=== PATIENT | male | born 1950 | race African-American/Black ===

== ENCOUNTER 2017-03-12 07:52 | Outpatient (CLI) | payer OTHER, MEDICAID ==
[~2017-03-12 07:52] MED LIST: ASCO500T20 PO; HYDR25TA4 PO; LISI-652 PO; MULT-1117 PO; MYL80 PO; NITSL SL; NOR10 PO; ONDA4TAB5 PO; POTA20TA83 PO; PRO40 PO
[2017-03-12] MEDS ORDERED: DIATR MEGLU/DIATRIZ SOD 30 ML SOLUTION PO ONE (08:10)
[2017-03-12] MEDS ORDERED: IOHEXOL 100 ML IV ONE (09:28)
== END 2017-03-12 19:40 | disposition home or self-care (01) ==
LOC: SCT 07:52
PROVIDERS: ATTEND Family Medicine
DX: N40.0 Benign prostatic hyperplasia without lower urinary tract symptoms (principal); M47.896 Other spondylosis, lumbar region; I70.8 Atherosclerosis of other arteries; I51.7 Cardiomegaly
CPT/HCPCS: 74177; Q9964; Q9967

== ENCOUNTER 2019-01-20 12:08 | Inpatient (IN) | payer OTHER, MEDICAID ==
[~2019-01-20] VITALS: Ht 172.7 cm; Wt 98.0 kg
[~2019-01-20 12:08] MED LIST changes: +ACET325T53 PO; +CYAN100T3 PO; +DOCU-144 PO; +DULR10 RC; +FAMO40TA71 PO; +MOM PO; +POTA8TAB4 PO; +SENN-153 PO; +SUCR1TAB78 PO
[2019-01-20 12:14] VITALS: BP_SYST 194
[2019-01-20] MEDS ORDERED: ESCI20TA37 PO (12:36)
[2019-01-20] MEDS ORDERED: ACET-2634 PO (12:36)
[2019-01-20] MEDS ORDERED: TRAV2.5D OP (12:36)
[2019-01-20] MEDS ORDERED: ACET-2165 PO (12:36)
[2019-01-20] MEDS ORDERED: PANTOPRAZOLE SODIUM 40 MG/VIAL (PROTONIX) IVP ONE (12:45)
[2019-01-20] MEDS ORDERED: NACL 0.9% 1,000 ML IV ONE (12:45)
[2019-01-20] MEDS ORDERED: ONDANSETRON HCL 4 MG/2 ML VIAL IVP ONE ×2 (12:45→14:45)
[2019-01-20 13:11] LABS: BASOPHILS % (AUTO) 0.2 % (0.0-2.0); EOSINOPHILS % (AUTO) 0.3 % (0.0-4.0); HEMATOCRIT 40.1 % (36-54); HEMOGLOBIN 12.9 g/dL (14.0-18.0); LYMPHOCYTES # (AUTO) 1.9 K/uL (1.0-5.5); LYMPHOCYTES % (AUTO) 10.6 % (20.5-51.5); MEAN CORPUSCULAR HEMOGLOBIN 23 pg (27-31); MEAN CORPUSCULAR HGB CONC 32 % (32-36); MEAN CORPUSCULAR VOLUME 72 fL (79.0-98.0); MONOCYTES % (AUTO) 11.1 % (1.7-9.3); NEUTROPHILS # (AUTO) 13.9 K/uL (1.8-7.7); NEUTROPHILS % (AUTO) 77.8 % (40.0-70.0); PLATELET COUNT (AUTO) 339 K/uL (130-430); RED BLOOD CELL COUNT(AUTO) 5.57 MIL/uL (4.2-6.2); RED CELL DISTRIBUTION WIDTH 19.9 % (9.0-15.0); WHITE BLOOD COUNT (AUTO) 17.9 K/uL (4.8-10.8)
[2019-01-20 13:18] LABS: CALCIUM 9.3 mg/dL (8.4-11.0); CREATININE 1.81 mg/dL (0.55-1.30); POTASSIUM 4.1 mmol/L (3.5-5.1)
[2019-01-20 13:23] LABS: ALBUMIN 3.4 g/dL (3.4-4.8); TOTAL BILIRUBIN 0.2 mg/dL (0.0-1.0)
[2019-01-20 13:24] LABS: PROTHROMBIN TIME 10.5 SECS (9.5-12.5)
[2019-01-20] MEDS ORDERED: NACL 0.9% 2,000 ML IV ONE (13:45)
[2019-01-20 13:50] LABS: BILIRUBIN,URINE 1+ (NEGATIVE); BLOOD, URINE 3+ (NEGATIVE); CLARITY/URINE CLEAR (CLEAR); COLOR,URINE YELLOW (YELLOW); GLUCOSE,URINE NEGATIVE (NEGATIVE); KETONES,URINE NEGATIVE (NEGATIVE); LEUKOCYTE ESTERASE ,URINE NEGATIVE (NEGATIVE); NITRITE, URINE NEGATIVE (NEGATIVE); PH,URINE 5.5 (5.0-8.0); PROTEIN URINE 2+ (NEGATIVE); UROBILINOGEN,URINE 0.2 (0.2-1.0)
[2019-01-20 14:02] LABS: BACTERIA,URINE FEW /HPF (None Seen); RBC,URINE 20-50 /HPF (0-3); URINE AMORPHOUS URATE 1+ /HPF (None Seen); WBC,URINE 0-3 /HPF (0-3)
[2019-01-20] MEDS ORDERED: metroNIDAZOLE 500 mg/NS 100 ML IV ONE (14:45)
[2019-01-20] MEDS ORDERED: hydrALAZINE HCL 20 MG/ML VIAL IVP ONE (14:45)
[2019-01-20 18:04] VITALS: BP_SYST 141
[2019-01-20 18:06] VITALS: BP_SYST 141
[2019-01-20 19:00] VITALS: BP_SYST 128
[2019-01-20] MEDS ORDERED: PIPERACILLIN/TAZO 3.375/DEX-IS 50 ML IV SCH (19:30)
[2019-01-20] MEDS ORDERED: NITROGLYCERIN 0.4 MG TAB.SUBL SL SCH (19:30)
[2019-01-20] MEDS ORDERED: ACETAMINOPHEN 325 MG TABLET PO PRN (19:30)
[2019-01-20] MEDS ORDERED: ONDANSETRON HCL 4 MG/2 ML VIAL IVP PRN (19:30)
[2019-01-20] MEDS ORDERED: MILK OF MAGNESIA 30 ML UDC PO PRN (19:30)
[2019-01-20] MEDS ORDERED: ACETAMINOPHEN 500 MG TABLET PO PRN (19:30)
[2019-01-20] MEDS ORDERED: BISACODYL 10 MG/SUPPOSITORY RC PRN (19:30)
[2019-01-20] MEDS ORDERED: PIPERACILLIN/TAZO 3.375/DEX-IS 50 ML IV ONE (20:15)
[2019-01-20 20:20] LABS: BASOPHILS # (AUTO) 0.1 K/uL (0.0-0.2); BASOPHILS % (AUTO) 0.3 % (0.0-2.0); EOSINOPHILS # (AUTO) 0.1 K/uL (0.0-0.4); EOSINOPHILS % (AUTO) 0.3 % (0.0-4.0); HEMATOCRIT 38.1 % (36-54); LYMPHOCYTES # (AUTO) 2.2 K/uL (1.0-5.5); LYMPHOCYTES % (AUTO) 11.9 % (20.5-51.5); MEAN CORPUSCULAR HEMOGLOBIN 23 pg (27-31); MEAN CORPUSCULAR HGB CONC 31 % (32-36); MEAN CORPUSCULAR VOLUME 73 fL (79.0-98.0); MONOCYTES # (AUTO) 1.9 K/uL (0.0-1.0); MONOCYTES % (AUTO) 10.2 % (1.7-9.3); NEUTROPHILS # (AUTO) 14.4 K/uL (1.8-7.7); NEUTROPHILS % (AUTO) 77.3 % (40.0-70.0); PLATELET COUNT (AUTO) 280 K/uL (130-430); RED BLOOD CELL COUNT(AUTO) 5.21 MIL/uL (4.2-6.2); WHITE BLOOD COUNT (AUTO) 18.7 K/uL (4.8-10.8)
[2019-01-20 20:27] LABS: CALCIUM 8.6 mg/dL (8.4-11.0); CREATININE 1.36 mg/dL (0.55-1.30); POTASSIUM 4.2 mmol/L (3.5-5.1)
[2019-01-20 20:55] VITALS: BP_SYST 160
[2019-01-20 21:00] VITALS: BP_SYST 160
[2019-01-20] MEDS: LATANOPROST 2.5 ML DROPS (XALATAN) OP SCH (21:00)
[2019-01-20] MEDS ORDERED: TRAVOPROST 0.004% 2.5 ML EYE DROPS OP SCH (21:00)
[2019-01-20] MEDS: SENNOSIDES 8.6 MG TABLET PO SCH (22:00)
[2019-01-21] MEDS: NACL 0.9% 1,000 ML IV SCH ×4 (00:57→20:57)
[2019-01-21 01:31] VITALS: BP_SYST 149
[2019-01-21] MEDS: PIPERACILLIN/TAZOBACTAM 2.25 GM/ D5W 50 ML IV SCH ×8 (02:00→20:00)
[2019-01-21 02:55] VITALS: BP_SYST 124
[2019-01-21 06:09] LABS: BASOPHILS # (AUTO) 0.1 K/uL (0.0-0.2); BASOPHILS % (AUTO) 0.6 % (0.0-2.0); EOSINOPHILS # (AUTO) 0.5 K/uL (0.0-0.4); EOSINOPHILS % (AUTO) 2.8 % (0.0-4.0); HEMATOCRIT 35.8 % (36-54); HEMOGLOBIN 11.2 g/dL (14.0-18.0); LYMPHOCYTES % (AUTO) 18.3 % (20.5-51.5); MEAN CORPUSCULAR HEMOGLOBIN 23 pg (27-31); MEAN CORPUSCULAR HGB CONC 31 % (32-36); MEAN CORPUSCULAR VOLUME 73 fL (79.0-98.0); MONOCYTES # (AUTO) 2.3 K/uL (0.0-1.0); MONOCYTES % (AUTO) 13.7 % (1.7-9.3); NEUTROPHILS # (AUTO) 10.6 K/uL (1.8-7.7); NEUTROPHILS % (AUTO) 64.6 % (40.0-70.0); PLATELET COUNT (AUTO) 291 K/uL (130-430); RED BLOOD CELL COUNT(AUTO) 4.88 MIL/uL (4.2-6.2); RED CELL DISTRIBUTION WIDTH 19.9 % (9.0-15.0); WHITE BLOOD COUNT (AUTO) 16.5 K/uL (4.8-10.8)
[2019-01-21 06:11] LABS: ALBUMIN 2.8 g/dL (3.4-4.8); CALCIUM 8.8 mg/dL (8.4-11.0); CREATININE 1.62 mg/dL (0.55-1.30); POTASSIUM 3.8 mmol/L (3.5-5.1); TOTAL BILIRUBIN 0.3 mg/dL (0.0-1.0)
[2019-01-21] MEDS: SUCRALFATE 1 GM TABLET PO SCH ×2 (07:30→16:27)
[2019-01-21 08:00] VITALS: BP_SYST 129
[2019-01-21] MEDS: CITALOPRAM HYDROBROMIDE 20 MG TABLET PO SCH (08:22)
[2019-01-21] MEDS: ASCORBIC ACID 500 MG TABLET PO SCH (08:22)
[2019-01-21] MEDS: DOCUSATE SODIUM 100 MG CAPSULE PO SCH (08:22)
[2019-01-21] MEDS: MULTIVITAMINS TAB 1 TABLET PO SCH (08:23)
[2019-01-21] MEDS: SIMETHICONE 80 MG TAB.CHEW PO SCH (08:23)
[2019-01-21] MEDS: amLODIPine BESYLATE 10 MG TABLET PO SCH (08:24)
[2019-01-21] MEDS ORDERED: MINERAL OIL 30 ML UDC PO ONE (08:45)
[2019-01-21] MEDS ORDERED: NON-FORMULARY MEDICATION (Escitalopram Oxalate 20 MG) PO SCH (09:00)
[2019-01-21] MEDS: Cyanocobalamin (Vitamin B-12) 100 MCG PO SCH (09:00)
[2019-01-21] MEDS ORDERED: LISINOPRIL 5 MG TABLET PO SCH (09:00)
[2019-01-21] MEDS ORDERED: GASTROGRAFIN 120 ML ONE (10:37)
[2019-01-21] MEDS ORDERED: MINERAL OIL 30 ML UDC PO SCH (12:00)
[2019-01-21 16:58] VITALS: BP_SYST 157
[2019-01-21 20:30] VITALS: BP_SYST 149
[2019-01-21] MEDS: SENNOSIDES 8.6 MG TABLET PO SCH (21:00)
[2019-01-21] MEDS: MINERAL OIL 30 ML UDC PO SCH (21:00)
[2019-01-21] MEDS: LATANOPROST 2.5 ML DROPS (XALATAN) OP SCH (21:00)
[2019-01-22] MEDS: PIPERACILLIN/TAZOBACTAM 2.25 GM/ D5W 50 ML IV SCH ×8 (02:00→21:34)
[2019-01-22 04:07] VITALS: BP_SYST 129
[2019-01-22] MEDS: NACL 0.9% 1,000 ML IV SCH ×2 (06:57→16:57)
[2019-01-22] MEDS: SUCRALFATE 1 GM TABLET PO SCH ×2 (07:17→16:59)
[2019-01-22 08:06] VITALS: BP_SYST 134
[2019-01-22] MEDS: Cyanocobalamin (Vitamin B-12) 100 MCG PO SCH (08:45)
[2019-01-22] MEDS: MULTIVITAMINS TAB 1 TABLET PO SCH (08:48)
[2019-01-22] MEDS: DOCUSATE SODIUM 100 MG CAPSULE PO SCH (08:48)
[2019-01-22] MEDS: SIMETHICONE 80 MG TAB.CHEW PO SCH (08:48)
[2019-01-22] MEDS: ASCORBIC ACID 500 MG TABLET PO SCH (08:48)
[2019-01-22] MEDS: CITALOPRAM HYDROBROMIDE 20 MG TABLET PO SCH (08:49)
[2019-01-22] MEDS: amLODIPine BESYLATE 10 MG TABLET PO SCH (08:50)
[2019-01-22] MEDS: MINERAL OIL 30 ML UDC PO SCH ×2 (09:00→21:35)
[2019-01-22 09:01] LABS: BASOPHILS % (AUTO) 0.4 % (0.0-2.0); EOSINOPHILS # (AUTO) 0.8 K/uL (0.0-0.4); EOSINOPHILS % (AUTO) 6.3 % (0.0-4.0); HEMATOCRIT 33.3 % (36-54); HEMOGLOBIN 10.4 g/dL (14.0-18.0); LYMPHOCYTES # (AUTO) 1.9 K/uL (1.0-5.5); LYMPHOCYTES % (AUTO) 15.5 % (20.5-51.5); MEAN CORPUSCULAR HEMOGLOBIN 23 pg (27-31); MEAN CORPUSCULAR HGB CONC 31 % (32-36); MEAN CORPUSCULAR VOLUME 73 fL (79.0-98.0); MONOCYTES # (AUTO) 1.3 K/uL (0.0-1.0); MONOCYTES % (AUTO) 10.2 % (1.7-9.3); NEUTROPHILS # (AUTO) 8.4 K/uL (1.8-7.7); NEUTROPHILS % (AUTO) 67.6 % (40.0-70.0); PLATELET COUNT (AUTO) 263 K/uL (130-430); RED BLOOD CELL COUNT(AUTO) 4.57 MIL/uL (4.2-6.2); RED CELL DISTRIBUTION WIDTH 19.9 % (9.0-15.0); WHITE BLOOD COUNT (AUTO) 12.4 K/uL (4.8-10.8)
[2019-01-22 09:27] LABS: ALBUMIN 2.5 g/dL (3.4-4.8); CALCIUM 8.2 mg/dL (8.4-11.0); CREATININE 1.18 mg/dL (0.55-1.30); POTASSIUM 3.4 mmol/L (3.5-5.1); TOTAL BILIRUBIN 0.3 mg/dL (0.0-1.0)
[2019-01-22] MEDS ORDERED: POTASSIUM CHLORIDE 20 MEQ/PKT PACKET PO ONE (11:00)
[2019-01-22 13:23] VITALS: BP_SYST 162
[2019-01-22 16:30] VITALS: BP_SYST 167
[2019-01-22 20:00] VITALS: BP_SYST 166
[2019-01-22] MEDS: SENNOSIDES 8.6 MG TABLET PO SCH (21:35)
[2019-01-22] MEDS: LATANOPROST 2.5 ML DROPS (XALATAN) OP SCH (21:36)
[2019-01-23] MEDS: PIPERACILLIN/TAZOBACTAM 2.25 GM/ D5W 50 ML IV SCH ×6 (02:00→20:00)
[2019-01-23] MEDS: NACL 0.9% 1,000 ML IV SCH (02:57)
[2019-01-23 05:52] LABS: BASOPHILS % (AUTO) 0.3 % (0.0-2.0); EOSINOPHILS % (AUTO) 10.7 % (0.0-4.0); HEMATOCRIT 31.5 % (36-54); HEMOGLOBIN 9.8 g/dL (14.0-18.0); LYMPHOCYTES # (AUTO) 2.1 K/uL (1.0-5.5); LYMPHOCYTES % (AUTO) 22.3 % (20.5-51.5); MEAN CORPUSCULAR HEMOGLOBIN 23 pg (27-31); MEAN CORPUSCULAR HGB CONC 31 % (32-36); MEAN CORPUSCULAR VOLUME 73 fL (79.0-98.0); MONOCYTES # (AUTO) 1.6 K/uL (0.0-1.0); MONOCYTES % (AUTO) 16.7 % (1.7-9.3); NEUTROPHILS # (AUTO) 4.7 K/uL (1.8-7.7); PLATELET COUNT (AUTO) 250 K/uL (130-430); RED BLOOD CELL COUNT(AUTO) 4.32 MIL/uL (4.2-6.2); RED CELL DISTRIBUTION WIDTH 19.9 % (9.0-15.0); WHITE BLOOD COUNT (AUTO) 9.5 K/uL (4.8-10.8)
[2019-01-23] MEDS: SUCRALFATE 1 GM TABLET PO SCH (06:20)
[2019-01-23 06:59] LABS: ALBUMIN 2.5 g/dL (3.4-4.8); CALCIUM 8.1 mg/dL (8.4-11.0); CREATININE 0.96 mg/dL (0.55-1.30); POTASSIUM 3.4 mmol/L (3.5-5.1); TOTAL BILIRUBIN 0.2 mg/dL (0.0-1.0)
[2019-01-23] MEDS ORDERED: POTASSIUM CHLORIDE 40 MEQ in NS 250 ML IV PRN (08:00)
[2019-01-23] MEDS ORDERED: IPRATROPIUM/ALBUTEROL SULFATE 3 ML AMPUL.NEB (DUONEB) INH PRN (10:45)
[2019-01-23] MEDS: MINERAL OIL 30 ML UDC PO SCH ×2 (10:50→22:22)
[2019-01-23] MEDS: MULTIVITAMINS TAB 1 TABLET PO SCH (10:51)
[2019-01-23] MEDS: DOCUSATE SODIUM 100 MG CAPSULE PO SCH (10:52)
[2019-01-23] MEDS: SIMETHICONE 80 MG TAB.CHEW PO SCH (10:52)
[2019-01-23] MEDS: ASCORBIC ACID 500 MG TABLET PO SCH (10:52)
[2019-01-23] MEDS: amLODIPine BESYLATE 10 MG TABLET PO SCH (10:56)
[2019-01-23] MEDS: CITALOPRAM HYDROBROMIDE 20 MG TABLET PO SCH (11:05)
[2019-01-23 12:44] VITALS: BP_SYST 123
[2019-01-23 14:07] VITALS: BP_SYST 123
[2019-01-23 17:24] VITALS: BP_SYST 160
[2019-01-23 20:10] VITALS: BP_SYST 175
[2019-01-23] MEDS: SENNOSIDES 8.6 MG TABLET PO SCH (22:23)
[2019-01-23] MEDS: LATANOPROST 2.5 ML DROPS (XALATAN) OP SCH (22:24)
[2019-01-24] VITALS (7 sets, daily range): BP systolic 136–167
[2019-01-24] MEDS: PIPERACILLIN/TAZOBACTAM 2.25 GM/ D5W 50 ML IV SCH ×4 (02:00→08:57)
[2019-01-24 08:10] LABS: BASOPHILS # (AUTO) 0.1 K/uL (0.0-0.2); BASOPHILS % (AUTO) 0.6 % (0.0-2.0); EOSINOPHILS # (AUTO) 0.8 K/uL (0.0-0.4); EOSINOPHILS % (AUTO) 8.3 % (0.0-4.0); HEMOGLOBIN 10.1 g/dL (14.0-18.0); LYMPHOCYTES # (AUTO) 1.9 K/uL (1.0-5.5); MEAN CORPUSCULAR HEMOGLOBIN 23 pg (27-31); MEAN CORPUSCULAR HGB CONC 32 % (32-36); MEAN CORPUSCULAR VOLUME 72 fL (79.0-98.0); MONOCYTES # (AUTO) 1.4 K/uL (0.0-1.0); MONOCYTES % (AUTO) 14.9 % (1.7-9.3); NEUTROPHILS % (AUTO) 55.2 % (40.0-70.0); PLATELET COUNT (AUTO) 237 K/uL (130-430); RED BLOOD CELL COUNT(AUTO) 4.42 MIL/uL (4.2-6.2); RED CELL DISTRIBUTION WIDTH 19.8 % (9.0-15.0); WHITE BLOOD COUNT (AUTO) 9.1 K/uL (4.8-10.8)
[2019-01-24 08:38] LABS: ALBUMIN 2.6 g/dL (3.4-4.8); CALCIUM 8.1 mg/dL (8.4-11.0); CREATININE 0.98 mg/dL (0.55-1.30); POTASSIUM 3.5 mmol/L (3.5-5.1); TOTAL BILIRUBIN 0.2 mg/dL (0.0-1.0)
[2019-01-24] MEDS: Cyanocobalamin (Vitamin B-12) 100 MCG PO SCH (08:55)
[2019-01-24] MEDS: MINERAL OIL 30 ML UDC PO SCH (08:57)
[2019-01-24] MEDS: amLODIPine BESYLATE 10 MG TABLET PO SCH (08:58)
[2019-01-24] MEDS: MULTIVITAMINS TAB 1 TABLET PO SCH (08:58)
[2019-01-24] MEDS: ASCORBIC ACID 500 MG TABLET PO SCH (08:58)
[2019-01-24] MEDS: DOCUSATE SODIUM 100 MG CAPSULE PO SCH (08:58)
[2019-01-24] MEDS: SIMETHICONE 80 MG TAB.CHEW PO SCH (08:58)
[2019-01-24] MEDS: CITALOPRAM HYDROBROMIDE 20 MG TABLET PO SCH (08:59)
[2019-01-24] MEDS: NACL 0.9% 1,000 ML IV SCH (09:01)
[2019-01-24] MEDS: SUCRALFATE 1 GM TABLET PO SCH ×2 (09:31→18:22)
[2019-01-24] MEDS ORDERED: metroNIDAZOLE 500 mg/NS 100 ML IV SCH (13:00)
[2019-01-24] MEDS ORDERED: cefTRIAXone 1 GM in D5W 50 ML IV SCH (14:00)
== END 2019-01-24 21:35 | DRG 871 ==
LOC: SED 12:08 → STU 15:54 → SMU 01-23 18:55
PROVIDERS: ADMIT Family Medicine; ATTEND Family Medicine
DX: A41.9 Sepsis, unspecified organism (principal); N17.0 Acute kidney failure with tubular necrosis; J69.0 Pneumonitis due to inhalation of food and vomit; K92.0 Hematemesis; K56.7 Ileus, unspecified; I69.354 Hemiplegia and hemiparesis following cerebral infarction affecting left non-dominant side; I10 Essential (primary) hypertension; K21.9 Gastro-esophageal reflux disease without esophagitis; E66.9 Obesity, unspecified; K31.89 Other diseases of stomach and duodenum; K52.9 Noninfective gastroenteritis and colitis, unspecified; Z93.3 Colostomy status; Z90.49 Acquired absence of other specified parts of digestive tract; Z79.899 Other long term (current) drug therapy; Z68.32 Body mass index [BMI] 32.0-32.9, adult
CPT/HCPCS: 36415; 71045; 74245-TC; 76700-TC; 80048; 80053; 81000-TC; 83605; 83690-TC; 84484; 85025; 85610-TC; 85730-TC; 87040-TC; 87081; 87086; 96361; 96365; 96375; 99285; C9113; G0378; J0360; J0696; J2405; J2543; J3480; J3490; J7030; J7050; J7060; Q9963